=== PATIENT | male | born 1985 | race Caucasian/White ===

== ENCOUNTER 2020-10-20 13:33 | Emergency (ER) | payer BC, SELFPAY ==
[2020-10-20 13:34] VITALS: BP 142/95; PULSE 78; RESP 16; TEMP 37; O2SAT 95; BMI 30.7
[2020-10-20] MEDS: DiphenhydrAMINE 50 MG/ML Syringe 12.5 MG IV (14:01)
[2020-10-20] MEDS: Famotidine 200 MG/20 ML MDV 20 MG in 0.9% Normal Saline (Pres. free 8 ML 300 MG IV (14:09)
[2020-10-20 14:34] VITALS: BP 129/72; PULSE 67; RESP 17; O2SAT 99
[2020-10-20 15:00] VITALS: BP 126/75; PULSE 78; RESP 15; O2SAT 97
--- NOTE | 2020-10-20 15:55 | EX.ED.DYSGE1 ---
HPI History of Present Illness Chief Complaint: Allergic Reaction Informant: patient and family Onset/Context/Timing Onset: Today Current Severity: Moderate Maximum Severity: Severe Narrative Narrative: Patient present secondary to allergic reaction. He had what he presumed was poison herve over the last day or 2. He went to urgent care this morning. He was prescribed prednisone and took his first dose around noon today. Half hour later he noted his eyes were swollen he had increased redness and hives over his body. He felt like his throat was tight. He was given 2 tabs of Benadryl and brought to the emergency room for evaluation. He does state that symptoms are starting to improve. Patient denies ever being prescribed steroids in the past. PFSH PFSH no medical history Home Medications famotidine [Pepcid] 40 mg PO DAILY #14 tab 10/20/20 [Rx Last Taken Unknown] Allergy/AdvReac Type Severity Reaction Status Date / Time prednisone Allergy Anaphylaxis Verified 10/20/20 13:37 Social History Smoking Status: Never smoker ROS ROS ED Constitutional Constitutional ED: Denies chills or fever(s) Eyes Eyes: Reports other Details: Eyelid edema ; Denies change in vision ENT ENT ED: Reports other Details: Throat tightness ; Denies sore throat Cardiovascular Cardiovascular: Reports racing heartbeat; Denies chest pain or palpitations Respiratory/Chest Respiratory/Chest: Denies cough or dyspnea Gastrointestinal Gastrointestinal: Denies abdominal pain, diarrhea, nausea or vomiting Genitourinary Genitourinary ED: Denies dysuria Musculoskeletal Musculoskeletal: Denies back pain Integumentary Reports rash Neurologic Neurologic: Denies headache(s) or weakness Psychiatric Psychiatric: Denies anxiety or depression Endocrine Endocrinology: Denies polydipsia or polyuria Allergic/Immunologic Allergic/Immunologic ED: Reports tongue swelling and urticaria EXAM Physical Exam Const Vital Signs: 10/20/20 13:34 10/20/20 14:34 10/20/20 15:00 Temperature 98.6 F Temperature Source Temporal Pulse Rate 78 67 78 Respiratory Rate 16 17 15 Blood Pressure 142/95 H 129/72 H 126/75 H Blood Pressure Mean 110 91 92 Pulse Ox 95 99 97 Oxygen Delivery Method Room Air Room Air Room Air 10/20/20 16:04 Temperature Temperature Source Pulse Rate 70 Respiratory Rate 15 Blood Pressure 121/80 H Blood Pressure Mean Pulse Ox 98 Oxygen Delivery Method Positive well nourished and well developed General Appearance ED: well developed HEENT Reports normocephalic and head/scalp atraumatic HEENT Narrative: Intraoral examination reveals no obvious tongue edema. Patient tolerating secretions well and has a strong voice. Eyes PERRL and EOMs intact bilaterally Eyes Narrative: Eyelid edema bilaterally. Neck supple Chest Wall inspection of chest normal and palpation of chest normal Resp normal respiratory effort and clear to auscultation bilaterally Cardio regular rate and regular rhythm GI normal to inspection, nondistended, normoactive bowel sounds Palpation: soft Extremity General Extremety ED: Negative for tenderness Neuro oriented x3 and no sensory deficits noted Sensorium / Orientation: alert Motor Exam: strength 5/5 throughout Psych mental status grossly normal Skin Skin Narrative: Urticarial lesions noted on the bilateral upper extremities and upper chest. MDM MDM MDM Narrative Medical decision making narrative: Patient was given an additional 12.5 mg of Benadryl along with 20 mg of IV Pepcid and was observed for 2 hours. Treatment and Re-Evaluation Comments:: On repeat examination erythema and hives significantly improved. Eyelid edema is significantly improved. Patient be discharged with prescription for Pepcid. He will continue Benadryl at home as well. Discharge Plan Triage Chief Complaint: Allergic Reaction ED Provider: Gaby Rosales Dx/Rx/DC Orders Clinical Impression: Allergic reaction Instructions: ED General Allergic Reactions Prescriptions: New famotidine [Pepcid] 40 mg tablet 40 mg PO DAILY Qty: 14 RF: 0 Primary Care Provider: Care Physician,No Primary Referrals: Preston Lloyd MD [STAFF PHYSICIAN] - As Needed Care Physician,No Primary [Primary Care Provider] - Disposition Disposition: Home, Self Care Discharge Date/Time: 10/20/20 16:05
[2020-10-20 16:04] VITALS: BP 121/80; PULSE 70; RESP 15; O2SAT 98
== END 2020-10-20 16:05 | disposition home or self-care (01) ==
PROVIDERS: Emergency Provider Emergency Medicine
DX: T78.40XA Allergy, unspecified, initial encounter (principal); X58.XXXA Exposure to other specified factors, initial encounter
CPT/HCPCS: 96374; 96375; 99284; J3490

== ENCOUNTER 2023-08-17 17:27 | Emergency (ER) | payer BC, SELFPAY ==
[2023-08-17 17:29] VITALS: BP 135/84; PULSE 69; RESP 16; TEMP 36.1; O2SAT 99
[2023-08-17 17:31] VITALS: BP 135/84; PULSE 69; RESP 16; TEMP 36.1; O2SAT 98; BMI 31.1
--- NOTE | 2023-08-17 17:37 | EDS_ITS ---
HPI History of Present Illness Chief Complaint: Allergic Reaction Narrative Narrative: Patient presenting for evaluation from urgent care. Apparently he has some poison oak/poison herve dermatitis on his arms and torso and requested a shot of steroids to help with this. He was given the shot and then started to have allergic reaction. He states he became very short of breath and his heart was racing and he became nauseous. He was given Benadryl and EpiPen while he was there and he states within a minute or 2 he started to feel better. He was sent to the ER out of concern for anaphylaxis. He states he does not have any shortness of breath now. He does not feel like his throat is closing. He does not have any chest pain or shortness of breath. [facility] Medical History (Updated 08/17/23 @ 18:03 by Selwyn MENDEZ, PA) Contact dermatitis due to poison oak Home Medications ?Medication ?Instructions ?Recorded ?Last Taken ?Type epinephrine 0.3 mg/0.3 mL 0.3 mg IM Q4H PRN anaphylaxis 03/19/22 Unknown History injection, auto-injector (EpiPen 2-Hitesh) epinephrine 0.3 mg/0.3 mL 0.3 mg (0.3 mL) IM Q4H PRN 08/17/23 Unknown Rx injection, auto-injector (Auvi-Q) anaphylaxis #2 ea Allergy/AdvReac Type Severity Reaction Status Date / Time triamcinolone (From Kenalog) Allergy Severe Anaphylaxis Verified 08/17/23 17:30 prednisone Allergy Anaphylaxis Verified 08/17/23 17:30 Family History Grandfather Myocardial infarction Other Anxiety Depression Social History adopted: No household members: spouse housing: house current occupational status: employed current occupation: [employer] Smoking Status: Never smoker alcohol intake: current details: 2 - 3 x a week substance use type: does not use vignesh/buddhist: Zoroastrian seatbelt use: always do you feel safe at home: Yes ROS ROS ED Constitutional Constitutional ED: Denies chills, fever(s) or sweats Eyes Eyes: Denies blurry vision or change in vision ENT ENT ED: Denies ear pain or sore throat Cardiovascular Cardiovascular: Reports palpitations and racing heartbeat; Denies chest pain Respiratory/Chest Respiratory/Chest: Reports dyspnea; Denies cough or sputum Gastrointestinal Gastrointestinal: Reports nausea; Denies abdominal pain, constipation, diarrhea or vomiting Genitourinary Genitourinary ED: Denies dysuria, hematuria or urinary frequency Musculoskeletal Musculoskeletal: Denies arthralgias, myalgias or neck pain Integumentary Denies abscess, Abrasions or rash Neurologic Neurologic: Denies headache(s), paresthesias or weakness Psychiatric Psychiatric: Denies anxiety, depression, suicidal ideation or suicidal thoughts Endocrine Endocrinology: Denies polydipsia or polyuria EXAM Physical Exam Const Vital Signs: 08/17/23 17:29 08/17/23 17:31 Temperature 96.9 F L 96.9 F L Temperature Source Temporal Temporal Pulse Rate 69 69 Respiratory Rate 16 16 Blood Pressure 135/84 H 135/84 H Blood Pressure Mean 101 101 Pulse Ox 99 98 Oxygen Delivery Method Room Air Room Air Positive well nourished and well developed General Appearance ED: well developed; Negative for pallor HEENT Reports moist mucous membranes Eyes PERRL and EOMs intact bilaterally Neck no lymphadenopathy Neck Narrative: No stridor Chest Wall inspection of chest normal and palpation of chest normal Resp normal respiratory effort and clear to auscultation bilaterally Auscultation: Negative for rales, rhonchi or wheezes Cardio regular rate and regular rhythm GI normal to inspection, nondistended, normoactive bowel sounds Neuro oriented x3 and CN's II-XII intact bilaterally Sensorium / Orientation: alert Psych mental status grossly normal Skin no rashes or lesions noted General Skin Exam: Negative for jaundice or pallor MDM MDM MDM Narrative Medical decision making narrative: Patient sent in for evaluation due to an anaphylactic reaction to Kenalog. Patient reports he does have a history of similar reaction to prednisone. He had not had this reaction to Kenalog. He was given an EpiPen and Benadryl prior to arrival. He states he feels much better. Vital signs are stable and he is afebrile. He is not have any severe symptoms currently. We will monitor him. He is given Pepcid and IV fluids. Patient has been here for 3 and half hours with no worsening. He is requesting to go home. Counseled that his Kenalog shot was long-acting and he may have still have a reaction. He is discharged with an EpiPen and counseled to take EpiPen for any symptoms like he had earlier and Benadryl and if he has to use it to come back to the ED. Impression: 1. anaphylaxis Lab Data Attestation: I reviewed the patient's lab results. Discharge Plan Triage Chief Complaint: Allergic Reaction ED Provider: Gibson Leyva Dx/Rx/DC Orders Instructions: ED Anaphylaxis Prescriptions: New epinephrine [Auvi-Q] 0.3 mg/0.3 mL auto-injector 0.3 mg IM Q4H PRN (Reason: anaphylaxis) Qty: 2 0RF No Action epinephrine [EpiPen 2-Hitesh] 0.3 mg/0.3 mL auto-injector 0.3 mg IM Q4H PRN (Reason: anaphylaxis) Primary Care Provider: Cathi Cifuentes Referrals: Cathi Cifuentes MD [Primary Care Provider] - Print Language: Serbian Disposition Disposition: Home, Self Care
[2023-08-17] MEDS: 0.9% Normal Saline (1000mL) 1,000 ML 999 ML IV (17:39)
[2023-08-17] MEDS: Famotidine 200 MG/20 ML MDV 20 MG in 0.9% Normal Saline (Pres. free 8 ML 300 MG IV (18:04)
[2023-08-17 21:19] VITALS: BP 137/74; PULSE 64; RESP 16; TEMP 37.1; O2SAT 99
== END 2023-08-17 21:20 | disposition home or self-care (01) ==
PROVIDERS: Emergency Provider Student in an Organized Health Care Education/Training Program; PCP Internal Medicine; Visit Provider Student in an Organized Health Care Education/Training Program
DX: T88.6XXA Anaphylactic reaction due to adverse effect of correct drug or medicament properly administered, initial encounter (principal); R11.0 Nausea; R00.2 Palpitations; R06.02 Shortness of breath; T38.0X5A Adverse effect of glucocorticoids and synthetic analogues, initial encounter
CPT/HCPCS: 96361; 96374; 99282; J3490